=== PATIENT | female | born 1940 ===

== ENCOUNTER 2019-09-17 14:22 | Inpatient (IN) | payer OTHER ==
[~2019-09-17] VITALS: Ht 157.5 cm; Wt 67.1 kg
[2019-09-17] MEDS ORDERED: COZAAR100 MG (14:56)
[2019-09-17] MEDS ORDERED: ROSUVASTATIN CA20 MG (14:57)
[2019-09-17] MEDS ORDERED: SERTRALINE20 MG/1 ML (14:57)
== END 2019-09-21 18:06 | DRG 470 ==
LOC: ER 14:22 → O/R 09-18 10:22 → SEC-K 09-18 10:22 → SURH 09-18 10:22 → O/R 09-18 11:40 → SURH 09-18 19:04
PROVIDERS: ADMIT Orthopaedic Surgery; ATTEND Orthopaedic Surgery
PROC: 0KXP0ZZ Transfer Left Hip Muscle, Open Approach (ICD-10-PCS; 2019-09-18)
PROC: 0SRS0JZ Replacement of Left Hip Joint, Femoral Surface with Synthetic Substitute, Open Approach (ICD-10-PCS; principal; 2019-09-18 13:00)
DX: S72.092A Other fracture of head and neck of left femur, initial encounter for closed fracture (principal); D62 Acute posthemorrhagic anemia; M85.88 Other specified disorders of bone density and structure, other site; I10 Essential (primary) hypertension; E78.5 Hyperlipidemia, unspecified; F32.9 Major depressive disorder, single episode, unspecified; W01.0XXA Fall on same level from slipping, tripping and stumbling without subsequent striking against object, initial encounter; Y93.89 Activity, other specified; Y92.89 Other specified places as the place of occurrence of the external cause

== ENCOUNTER 2019-11-05 11:18 | Outpatient (CLI) | payer OTHER ==
[~2019-11-05 11:18] MED LIST: COZAAR100 MG; ROSUVASTATIN CA20 MG; SERTRALINE20 MG/1 ML
== END 2019-11-05 15:00 | disposition home or self-care (01) ==
LOC: LAB 11:18
PROVIDERS: ATTEND Orthopaedic Surgery
DX: D64.89 Other specified anemias (principal); D80.1 Nonfamilial hypogammaglobulinemia; E55.9 Vitamin D deficiency, unspecified; M85.88 Other specified disorders of bone density and structure, other site; E21.2 Other hyperparathyroidism; E88.89 Other specified metabolic disorders; M81.8 Other osteoporosis without current pathological fracture; E56.1 Deficiency of vitamin K